=== PATIENT | female | born 1960 | race American Indian/Alaskan Native ===

== ENCOUNTER 2016-11-20 06:47 | Day surgery (SDC) | payer OTHER ==
[2016-11-20] MEDS ORDERED: Propofol 10 mg/ml Inj (20 ML) ONE (08:10)
--- NOTE | 2016-11-20 08:15 | CP.SDSHP ---
Same Day Surgery H & P - History Proposed Procedure: COLONSCOPY Pre-Op Diagnosis: SEE NOTES - Previous Medical/Surgical History Cardiac: Hypertension Misc: Other Pain: 4.Moderate Pain - Allergies Allergies: Allergies Penicillins Allergy (Verified 11/20/16 07:14) ITCHING - Physical Exam General Appearance: N Vital Signs: Vital Signs 11/20/16 07:17 Temperature 97.1 F L Pulse Rate 90 Respiratory 17 Rate Blood Pressure 144/73 O2 Sat by Pulse 97 Oximetry Mental Status: Alert & Oriented x3 Neuro: WNL Heart: Other Lungs: WNL GI: Other - {Optional Preform as Required} Breast: WNL Abdomen: Other Rectal: Other Integument: WNL : WNL Ortho: WNL ENT: WNL - Impression Pt. Evaluated Today:Candidate for Anesthesia & Procedure: Yes - Date & Time Time: 08:15 Short Stay Discharge - Short Stay Discharge Admitting Diagnosis/Reason for Visit: GI BLEEDING Disposition: HOME/ ROUTINE
[2016-11-20] MEDS ORDERED: Belladonna-Phenobarbital PO ONE (08:16)
[2016-11-20 09:13] VITALS: O2SAT 98
[2016-11-20 09:32] VITALS: BP 135/62; PULSE 72; RESP 13; TEMP 96.9
== END 2016-11-20 09:30 | disposition home or self-care (01) ==
LOC: C.ENDO 06:47
PROVIDERS: ATTEND Specialist
DX: K52.9 Noninfective gastroenteritis and colitis, unspecified (principal); K58.9 Irritable bowel syndrome, unspecified; K57.90 Diverticulosis of intestine, part unspecified, without perforation or abscess without bleeding
CPT/HCPCS: 45380; 88305; J2704; J3010

== ENCOUNTER 2016-11-27 07:12 | Day surgery (SDC) | payer OTHER ==
[2016-11-27 09:09] VITALS: O2SAT 100
[2016-11-27 09:42] VITALS: TEMP 98.7
[2016-11-27 10:31] VITALS: BP 161/75; PULSE 70; RESP 14
== END 2016-11-27 10:33 | disposition home or self-care (01) ==
LOC: C.ENDO 07:12
PROVIDERS: ATTEND Specialist
DX: K29.70 Gastritis, unspecified, without bleeding (principal); K44.9 Diaphragmatic hernia without obstruction or gangrene; K31.84 Gastroparesis
CPT/HCPCS: 43239; 88305; 88342; J2704; J2765; J7120

== ENCOUNTER 2017-09-30 06:18 | Day surgery (SDC) | payer OTHER ==
[2017-08-09 09:58] VITALS: BMI 43.5
[2017-09-30] MEDS ORDERED: Bupivacaine HCl 0.5% PF (30 ml) Inj ONE (07:22)
[2017-09-30] MEDS ORDERED: Lidocaine 2% MPF (5 ml) Inj ONE (07:23)
[2017-09-30] MEDS ORDERED: Midazolam 2 MG/2 ML VIAL ONE (07:24)
[2017-09-30] MEDS ORDERED: Propofol 10 mg/ml Inj (20 ML) ONE (07:38)
[2017-09-30] MEDS ORDERED: Clindamycin 600mg/50ml NS 600 MG/50 ML BAG IVPB ONE (07:42)
[2017-09-30] MEDS ORDERED: HYDROmorphone 0.5 mg/0.5 ml ISec IVP PRN (08:41)
--- NOTE | 2017-09-30 08:47 | PCM.SURG1 ---
Surgeon's Initial Post Op Note - Surgeon's Notes Surgeon: Dr. Freddy Wade DPM Machine Pan Greaser: Dr. Quintin Tamez DPM, PGY-1, Dr. Jagdish Carter DPM PGY-2 Type of Anesthesia: IV Sedation, Local Anesthesia Administered By: Dr. Isaac BANERJEE Pre-Operative Diagnosis: Left 5th digit hammer toe Operative Findings: See dictation. M: 3-0 vicryl, 4-0 prolene. I: 17 cc of 1: 1 2% lidocaine plain:0.5% marcaine plain Post-Operative Diagnosis: Same Operation Performed: Left 5th digit arthroplasty Specimen/Specimens Removed: none Estimated Blood Loss: EBL {In ML}: 1 Blood Products Given: N/A Drains Used: No Drains Post-Op Condition: Good Date of Surgery/Procedure: 09/30/17 Time of Surgery/Procedure: 08:46
[2017-09-30] MEDS ORDERED: Oxycodone/Acetaminophen 5/325 mg Tab PO PRN ×2 (10:00)
[2017-09-30 10:19] VITALS: RESP 15; O2SAT 96
[2017-09-30 15:25] VITALS: BP 138/79; PULSE 60; TEMP 97.7
--- NOTE | 2017-10-02 09:21 | OP ---
PROCEDURE DATE: 09/30/2017 PREOPERATIVE DIAGNOSIS: Left foot fifth digit painful hammertoe deformity. POSTOPERATIVE DIAGNOSIS: Left foot fifth digit painful hammertoe deformity. PROCEDURE: Left foot fifth digit proximal interphalangeal joint arthroplasty. SURGEON: Freddy Grant DPM MANAGER EMPLOYEE RELATIONS: Quintin Tamez DPM, PGY1; Dr. Jagdish Carter DPM, PGY2. ANESTHESIOLOGIST: Dr. Gray. TYPE OF ANESTHESIA: IV sedation with local. INDICATIONS: The patient is a 56-year-old female with the above diagnosis. The patient has exhausted all conservative treatment at this time and now requires surgical intervention. The patient signed the consent after careful explanation of the risks, benefits, complications, and alternatives for the surgical procedure. No guarantees were given nor implied. PREPARATION: The patient was brought into the operating room and placed on the operating room table in supine position. A well-padded pneumatic ankle tourniquet was applied to the patient's left ankle in the supramalleolar position. A time-out was performed for identification of the correct patient and the procedure. The patient received a total of 17 mL of 1:1 mixture of 0.5% Marcaine to 2% lidocaine plain in local block type fashion to the left lateral forefoot. Once the local anesthesia was achieved, the left foot was then prepped and draped in normal sterile manner. DESCRIPTION OF PROCEDURE: Left fifth digit PIPJ arthroplasty: Using a #15 blade, approximately a 4 cm semi-elliptical incision was made on the dorsal aspect of the proximal intraphalangeal joint of the left fifth digit. Sharp dissection was carried down through the deep tissue being careful to identify and retract all vital neurovascular structures. At this time, using a transverse tenotomy was performed through the proximal intraphalangeal joint and the head of the proximal phalanx was then freed from capsular and ligamentous attachment. Next, utilizing a oscillating saw, the head of the proximal phalanx was resected and passed from the operative site. The surgical sites were then irrigated with copious amount of normal sterile saline. The tendon was then reapproximated and sutured with 3-0 Vicryl. The skin was reapproximated and sutured with 4-0 Prolene. Left foot was then prepped and dressed with Xeroform, sterile gauze, Jaswant, and Lawrence. POSTOPERATIVE CONDITION: The patient tolerated the anesthesia and procedure well and was escorted to the recovery room with vital signs stable and neurovascular status intact to the left feet. Capillary refill time was observed to be normal after the procedure. This patient will be weightbearing as tolerated in a surgical shoe and will follow up with Dr. Grant in his office next week. Quintin Tamez DPM Freddy Grant DPM
== END 2017-09-30 15:12 | disposition home or self-care (01) ==
LOC: C.SDS 06:18
PROVIDERS: ATTEND Podiatrist Foot & Ankle Surgery
DX: M20.42 Other hammer toe(s) (acquired), left foot (principal); M19.90 Unspecified osteoarthritis, unspecified site; J45.909 Unspecified asthma, uncomplicated; I10 Essential (primary) hypertension; E78.5 Hyperlipidemia, unspecified; E66.9 Obesity, unspecified
CPT/HCPCS: 28285; 88304; J2001; J2250; J2704; J3010